=== PATIENT | female | born 1975 ===

== ENCOUNTER 2023-05-15 09:20 | Outpatient (AMB) | payer OTHER, SELFPAY ==
--- NOTE | 2023-05-15 10:39 | AM.OFFWIN_ITS ---
Intake Vital Signs 05/15/23 10:44 Weight 172 lb BP 120/72 Blood Pressure Location Lt brachial Position Sitting Pulse 82 Pulse Source Pulse Oximeter Temp 97.8 F Temp Source Temporal Artery Scan Pulse Oximetry (%) 97 Intake Visit Reasons: [facility]/light headed/weakness(lobby) Intake Note: pt is here for c/o light headed and weakness Patient Tobacco Use Status: Never used Tobacco Allergies No Known Allergies Allergy (Verified 05/15/23 11:11) Medication List - Last Reconciled 05/15/23 by Karlos Arnold MD fluticasone propionate 50 mcg/actuation sprays intranasal lisinopril 20 mg PO DAILY Do you need a note to return to daycare/school/sports/work: Yes HPI [facility]/light headed/weakness(lobby) HPI Details Patient presents for a sick visit. Reporting symptoms of sinus congestion, sore throat and difficulty swallowing. Low-grade fever. No family member is sick. No recent travel. Patient reports symptoms of malaise and fatigue. PFSH Social History Patient Tobacco Use Status: Never used Tobacco Physical Exam Vital Signs: Last Vital Signs Temp 97.8 F 05/15/23 10:44 Pulse 82 05/15/23 10:44 BP 120/72 05/15/23 10:44 Pulse Ox 97 05/15/23 10:44 Const General: cooperative and healthy appearing Nutritional Appearance: well nourished Orientation/consciousness: patient oriented x3 Limitations: no limitations HEENT Head: Yes normal to inspection Eyes General: appearance normal, both eyes and all related structures Neck Neck: Yes normal visual inspection Chest Chest palpation & inspection: normal palpation of entire chest wall Resp Effort & Inspection: normal respiratory effort Neuro General: patient oriented x3 Assessment & Plan Assessment & Plan (1) Upper respiratory tract infection: Code(s): J06.9 - Acute upper respiratory infection, unspecified Plan: Antibiotics ordered. Increase fluid intake. Tylenol for aches and pains. If symptoms worsen, follow-up here for a recheck. Coding Level of Care Code Est Pt Level 3 (84730) Diagnoses Upper respiratory tract infection J06.9
[2023-05-15 10:44] VITALS: BP 120/72; PULSE 82; TEMP 36.6; O2SAT 97
== END 2023-05-15 11:15 | disposition home or self-care (01) ==
PROVIDERS: Visit Provider Internal Medicine
DX: J06.9 Acute upper respiratory infection, unspecified (principal)
CPT/HCPCS: 99213